=== PATIENT | female | born 1985 | race Caucasian/White ===

== ENCOUNTER 2018-07-06 08:22 | Inpatient (IN) | payer BC ==
[2018-07-06] VITALS (31 sets, daily range): BP systolic 90–128; BP diastolic 50–81; PULSE 56–88; TEMP 97.2–98.2
[~2018-07-06] VITALS: Ht 170.2 cm; Wt 81.4 kg
[~2018-07-06 08:22] MED LIST: MOTRIN 800800 MG/TAB PO; PERCOCET 325 MG1 TA2 PO; PRENATAL1 TA7 PO
[2018-07-06 09:33] LABS: BASO # 0.1 (0.0-0.2); BASO % 0.4 % (0.0-2.0); EOS # 0.1 (0.0-0.7); EOS % 0.9 % (0-4.0); GRAN # 10.3 (1.4-6.5); GRAN % 77.3 % (42.2-75.2); HEMOGLOBIN 11.9 g/dl (12.5-16.0); LYMPH # 1.9 (1.2-3.4); LYMPH % 14.5 % (20.0-51.0); MEAN CELL VOLUME 90 fl (80.0-100.0); MEAN CORPUSCULAR HEMOGLOBIN 30 pg (27.0-31.0); MEAN CORPUSCULAR HGB CONC 34 g/dl (33.0-37.0); MONO # 0.8 (0.1-0.6); MONO % 5.9 % (1.7-9.3); PLATELET COUNT 184 K/mm3 (130-400); RED BLOOD COUNT 3.91 M/mm3 (4.10-5.30); REDCELL DISTRIBUTION WIDTH-CV 12.7 % (11.5-14.5)
[2018-07-06 09:40] LABS: HEMATOCRIT 35.3 % (37.0-47.0)
[2018-07-07 01:50] VITALS: BP 115/65; PULSE 74; TEMP 97.7
[2018-07-07 07:00] VITALS: BP 116/60; PULSE 62; TEMP 98.1
[2018-07-07] MEDS ORDERED: IBU800 M1 PO (08:51)
== END 2018-07-07 15:27 | disposition home or self-care (01) | DRG 807 ==
LOC: LDR 08:22 → OB 16:45 → LDR 21:31 → OB 07-07 15:27
PROVIDERS: Student in an Organized Health Care Education/Training Program
PROC: 10E0XZZ Delivery of Products of Conception, External Approach (ICD-10-PCS; principal; 2018-07-06)
PROC: 0KQM0ZZ Repair Perineum Muscle, Open Approach (ICD-10-PCS; 2018-07-06)
PROC: 3E033VJ Introduction of Other Hormone into Peripheral Vein, Percutaneous Approach (ICD-10-PCS; 2018-07-06)
PROC: 0UQGXZZ Repair Vagina, External Approach (ICD-10-PCS; 2018-07-06)
DX: O26.843 Uterine size-date discrepancy, third trimester (principal); Z37.0 Single live birth; Z3A.39 39 weeks gestation of pregnancy; O40.3XX0 Polyhydramnios, third trimester, not applicable or unspecified; O70.1 Second degree perineal laceration during delivery
CPT/HCPCS: J1200; J2590; J2795; J7120